=== PATIENT | male | born 1985 ===

== ENCOUNTER → 2017-01-26 | Outpatient (CLI) | payer OTHER | LOC: MHCPAIN 09:16 | DX: G89.29 Other chronic pain (principal); M47.817 Spondylosis without myelopathy or radiculopathy, lumbosacral region; M53.3 Sacrococcygeal disorders, not elsewhere classified | CPT/HCPCS: G0463 ==

== ENCOUNTER → 2017-02-04 | Outpatient (CLI) | payer OTHER | LOC: MHCPAIN 12:39 | DX: M47.27 Other spondylosis with radiculopathy, lumbosacral region (principal) ==

== ENCOUNTER → 2017-02-12 | Outpatient (CLI) | payer OTHER | LOC: MHCPAIN 08:59 | DX: G89.29 Other chronic pain (principal); M47.817 Spondylosis without myelopathy or radiculopathy, lumbosacral region | CPT/HCPCS: G0463 ==

== ENCOUNTER → 2017-02-25 | Outpatient (CLI) | payer OTHER | LOC: MHCPAIN 12:13 | DX: M47.817 Spondylosis without myelopathy or radiculopathy, lumbosacral region (principal) | CPT/HCPCS: J1100; J2250; J3010 ==

== ENCOUNTER → 2017-03-04 | Outpatient (CLI) | payer OTHER | LOC: MHCPAIN 09:44 | DX: M47.817 Spondylosis without myelopathy or radiculopathy, lumbosacral region (principal) | CPT/HCPCS: J1100; J2250; J3010 ==

== ENCOUNTER → 2017-03-30 | Outpatient (CLI) | payer OTHER | LOC: MHCPAIN 08:31 | DX: G89.29 Other chronic pain (principal); M47.817 Spondylosis without myelopathy or radiculopathy, lumbosacral region | CPT/HCPCS: G0463 ==